=== PATIENT | female | born 1985 | race Caucasian/White ===

== ENCOUNTER 2017-07-10 14:40 | Inpatient (IN) | payer OTHER ==
[2017-07-11] MEDS ORDERED: LR / Pitocin 40 units/1000 ml 1,000 ML IV PRN (18:17)
[2017-07-11] MEDS ORDERED: Ondansetron HCl/PF 4 MG/2 ML Vial IVP PRN (18:17)
[2017-07-11] MEDS ORDERED: Zolpidem Tartrate 5 MG TAB PO PRN (18:17)
[2017-07-11] MEDS ORDERED: Acetaminophen 500 MG TAB PO PRN (18:17)
[2017-07-11] MEDS ORDERED: Promethazine HCl 25 MG/ML VIAL IM PRN (18:17)
--- NOTE | 2017-07-11 18:22 | PDOC.LDHP ---
Labor and Delivery H&P Chief complaint: scheduled induction Current gestational age (weeks): 40 Due date: 07/10/17 Dating criteria: first trimester ultrasound Grav: 1 Para: 0 Current complications: none Abnormal US findings: No Past Medical History: neg Current medications: pre-fanta vitamins Previous surgical history: other (wisdom teeth) Social history: none - Physical Exam Heart: RRR Lungs: CTAB Abdomen: gravid Extremeties: no edema FHT: category 1 - Vaginal Exam cm dilated: 1 Effacement: 25% Station: -1 - OB Labs Blood type: AB RH: positive Antibody Screen: negative HIV: negative RPR: negative HEPSAg: negative 1 hour GCT: positive 3 hour GTT: negative GBS: negative Urine drug screen: not done Rubella: immune - Assessment L&D Assessment: elective induction at term - Plan Plan: admit to L&D, cervical ripening, labor augmentation if indicated, anesthesia consult for pain management
[2017-07-11] MEDS ORDERED: HYDROcodone/Acetaminophen 5/325 mg Tablet PO PRN (21:30)
[2017-07-11] MEDS ORDERED: LR 500 ML/Oxytocin 10 units 500 ML IV SCH (21:30)
[2017-07-11] MEDS ORDERED: Lidocaine 1% (PF) 30 ML VIAL SC PRN (21:30)
[2017-07-11] MEDS ORDERED: Ibuprofen 800 MG TAB PO PRN (21:30)
[2017-07-11 21:35] VITALS: BMI 32.9
[2017-07-11] MEDS: Lactated Ringer's 1,000 ML IV SCH (21:50)
[2017-07-11] MEDS: Misoprostol 100 MCG TAB VAG SCH (22:11)
[2017-07-11 22:41] LABS: Hemoglobin 11.2 g/dL (12.0-16.0); Mean Corpuscular HGB CONC 34.6 g/dL (32.0-36.0); Mean Corpuscular Hemoglobin 33.6 pg (27.0-31.0); Mean Corpuscular Volume 96.9 fl (81.0-99.0); Mean Platelet Volume 7.5 fL (7.4-10.4); Platelet Count 272 thou/uL (130-400); RBC Distribution Width 11.7 % (11.5-14.5); Red Blood Cell (RBC) Count 3.35 mill/uL (4.20-5.40); White Blood Cell (WBC) Count 11.9 thou/uL (4.8-10.8)
[2017-07-11 23:26] LABS: HBSAg Index 0.19 S/CO (0-0.99); Hep B Surf Ag Non-Reactive S/CO (NonReactive)
[2017-07-11 23:46] LABS: Syphilis Antibody Nonreactive (Nonreactive); Syphilis Antibody Index 0.05 S/CO (<1.00 Non-Reactive)
[2017-07-12] MEDS: Misoprostol 100 MCG TAB VAG SCH ×3 (03:40→12:29)
[2017-07-12] MEDS: Lactated Ringer's 1,000 ML IV SCH ×3 (03:40→17:42)
[2017-07-12] MEDS ORDERED: DISCONTINUE ALL PREVIOUS NARCOTICS FS SCH (03:45)
[2017-07-12] MEDS: Bupivacaine 0.5% 20 ML, Fentanyl 400 MCG in Sodium Chloride 0.9% 72 ML EPIDURAL SCH ×3 (03:58→16:25)
[2017-07-12] MEDS ORDERED: diphenhydrAMINE 50 MG/ML VIAL IVP PRN ×2 (04:34→20:38)
[2017-07-12] MEDS ORDERED: Lactated Ringer's 500 ML IV PRN (04:34)
[2017-07-12] MEDS ORDERED: Naloxone HCl 0.4 mg/ml Vial IVP PRN ×4 (04:34→20:38)
[2017-07-12] MEDS ORDERED: Promethazine HCl 25 MG/ML VIAL IM PRN ×2 (04:34→20:38)
[2017-07-12] MEDS ORDERED: Ondansetron HCl/PF 4 MG/2 ML Vial IVP PRN ×3 (04:34→20:38)
[2017-07-12] MEDS ORDERED: Eucerin (Mineral Oil/Petrolatum,White) 30 gm Jar TOP PRN (04:34)
[2017-07-12] MEDS ORDERED: Acetaminophen 325 MG TAB PO PRN (04:34)
[2017-07-12] MEDS ORDERED: ePHEDrine/0.9% NaCl/PF SYRINGE 50 mg/10 ml SLOW IVP PRN (04:34)
[2017-07-12] MEDS ORDERED: Communication Order-Pharmacy FS SCH ×2 (04:45→20:45)
[2017-07-12] MEDS ORDERED: Fentanyl 4mcg/Marcaine 0.1% Cassette 100 ML EPIDURAL SCH (04:45)
[2017-07-12] MEDS ORDERED: Dexamethasone 20 MG/5 ML VIAL ONE (13:53)
[2017-07-12] MEDS ORDERED: Ketorolac Tromethamine 30 MG/ML VIAL ONE ×3 (13:53→21:33)
[2017-07-12] MEDS ORDERED: Lidocaine 2% MPF 10 ML AMP (For Epidural Use) ONE (13:53)
[2017-07-12] MEDS ORDERED: Ondansetron HCl/PF 4 MG/2 ML Vial ONE ×2 (13:53→20:20)
[2017-07-12] MEDS ORDERED: CEFAZOLIN/Water 2 GM/20 ML SYRINGE ONE (19:38)
[2017-07-12] MEDS ORDERED: Bicitra 30 ML UDCUP ONE (19:38)
[2017-07-12] MEDS ORDERED: Bicitra 30 ML UDCUP PO SCH (20:00)
[2017-07-12] MEDS ORDERED: CEFAZOLIN/Water 2 GM/20 ML SYRINGE SLOW IVP SCH (20:00)
--- NOTE | 2017-07-12 20:14 | PDOC.EVN ---
Event Note - Event Note Event Note: Patient has progressed in labor and was noted to be 8 cm/90%/-1 station at 1530. On repeat cervical check at 1730, no change was noted. An IUPC was placed and MVU's were noted to be over 200. FHRT remains reassuring throughout and patient is afebrile. Recheck shows edematous cervix 7 cm with no further descent -1 station. A/P: Failure to progress /descend in active phase Primary ceasarean section.
[2017-07-12] MEDS ORDERED: diphenhydrAMINE 25 MG CAP PO PRN (20:19)
[2017-07-12] MEDS ORDERED: Bisacodyl 10 MG SUPP PR PRN (20:19)
[2017-07-12] MEDS ORDERED: Morphine PF 1 MG/ML SYR ONE (20:19)
[2017-07-12] MEDS ORDERED: Lanolin Ointment 7 GM TUBE TOP PRN (20:19)
[2017-07-12] MEDS ORDERED: Adacel (T-DAP) 0.5 ML VIAL IM ONE (20:19)
[2017-07-12] MEDS ORDERED: Simethicone Chewable 80 MG TAB PO PRN (20:19)
[2017-07-12] MEDS ORDERED: Dexamethasone 4 mg/ml Vial ONE (20:20)
[2017-07-12] MEDS ORDERED: Oxytocin 10 UNITS/ML VIAL ONE ×2 (20:20→21:06)
[2017-07-12] MEDS ORDERED: LR w/ Pitocin 40 units/1000 ML BAG IV SCH (20:30)
[2017-07-12] MEDS ORDERED: HYDROmorphone 2 MG/ML VIAL SLOW IVP PRN (20:37)
[2017-07-12] MEDS ORDERED: Meperidine HCl/PF 25 MG/ML VIAL SLOW IVP PRN (20:37)
[2017-07-12] MEDS ORDERED: Hydrocerin (Eucerin) Cream 120 gm Jar TOP PRN (20:38)
[2017-07-12] MEDS ORDERED: Promethazine HCl 25 MG SUPP PR PRN (20:38)
[2017-07-12] MEDS ORDERED: Naloxone HCl 0.4 mg/ml Vial IV PRN (20:38)
[2017-07-12] MEDS ORDERED: Ketorolac Tromethamine 30 MG/ML VIAL IVP SCH (20:45)
[2017-07-12] MEDS: Ketorolac Tromethamine 30 MG/ML VIAL IVP PRN (21:35)
[2017-07-12] MEDS ORDERED: Ibuprofen 800 MG TAB PO SCH (22:00)
[2017-07-13 05:40] LABS: Hemoglobin 9.5 g/dL (12.0-16.0); Mean Corpuscular HGB CONC 34.4 g/dL (32.0-36.0); Mean Corpuscular Hemoglobin 32.9 pg (27.0-31.0); Mean Corpuscular Volume 95.7 fl (81.0-99.0); Mean Platelet Volume 7.1 fL (7.4-10.4); Platelet Count 188 thou/uL (130-400); RBC Distribution Width 11.6 % (11.5-14.5); Red Blood Cell (RBC) Count 2.88 mill/uL (4.20-5.40)
--- NOTE | 2017-07-13 07:48 | PDOC.OPDEL ---
OB Operative/Delivery Note Delivery Dr/Surgeon: Poornima Assist: Maximilian Pre-Delivery Diagnosis: arrest of dilation, elective induction Procedure/Post Delivery Dx: primary low transverse CS Weeks gestation: 40 Anesthesia: epidural - Findings A Sex: male Weight: 8 lb 8 oz - 1 min: 9 - 5 min: 9 - Additional Findings/Plan Placenta delivered: manual removal findings: low transverse hysterotomy without extension Estimated blood loss: 750ml Compilations/Other Findings: none Post delivery plan: routine recovery
--- NOTE | 2017-07-13 07:53 | PDOC.PP ---
Post Progress Note Post Day #: 1 PO intake tolerated: yes Flatus: yes Ambulation: yes Vital Signs (12 hours) Temp Pulse Resp BP BP 07/13/17 06:00 18 07/13/17 04:00 98.1 F 71 16 133/72 07/13/17 02:00 18 07/13/17 00:35 98.2 F 63 18 136/68 07/13/17 00:30 98.2 F 63 18 07/12/17 23:35 97.8 F 63 20 136/68 Weight Weight 204 lb - Physical Examination General: NAD Cardiovascular: no m/r/g, RRR Respiratory: clear to auscultation bilaterally, non-labored breathing Abdominal: + bowel sounds, lochia, no distention, appropriately TTP Result Diagrams: 07/13/17 05:23 Additional Labs: Post Labs Blood Type AB POSITIVE 07/11/17 21:56 Hep Bs Antigen Non-Reactive S/CO (NonReactive) 07/11/17 21:57 - Assessment/Plan post op day 0-1 from primary c/s for failure to progress/descend in active labor. Vitals are stable. Expected blood loss anemia is asymptomatic. Routine post op care.
--- NOTE | 2017-07-13 08:03 | OP ---
DATE OF PROCEDURE: 07/12/2017 PREOPERATIVE DIAGNOSIS: A 31-year-old white female , status post elective induction of labor wi th failure to progress and descend past 8 cm, -1 station. POSTOPERATIVE DIAGNOSES: 1. A 31-year-old white female , status post elective induction of labor with failure to progres s and descend past 8 cm, -1 station. 2. Nuchal cord x3 noted and ROP presentation. PROCEDURE PERFORMED: Primary low transverse section. ANESTHESIA: Epidural. SURGEON: Kerry Noguera M.D. MINERAL TECHNOLOGIST: Christine Yao M.D. ESTIMATED BLOOD LOSS: 750 mL. ANTIBIOTICS: Two grams Ancef travel money advisor to the OR. FINDINGS: 1. Vigorous male infant, Apgars 9 and 9 with weight 8 pounds and 8 ounces. Clear amniotic flu id noted. 2. ROP presentation noted along with loose triple nuchal cord. 3. Normal appearing uterus, fallopian tubes and ovaries. 4. Clear urine present in Swain catheter post procedure. DISPOSITION: To recovery room stable. DESCRIPTION OF OPERATIVE PROCEDURE: The patient had failed to progress over 4 hours past 8 cm with n o further descent in station and with adequate contraction patterns consistent with failure to progre ss and descend and was therefore taken back for primary section after informed consent had b een. She was placed in supine position, prepped and draped in usual fashion and epidural anesthesia was dosed at an adequate level for operative procedure. A Pfannenstiel incision was then made in the lower abdomen and was carried down the fascia. Fascia was nicked in midline. Fascial incision was extended bilaterally using curved Tompkins scissors. The rectus fascia was then dissected superiorly and inferiorly off the rectus muscle bellies and rectus muscle bellies divided in the midline. The abraham toneal cavity was entered. John O retractor was then placed and a 2 cm hysterotomy incision was ma de above the vesicouterine peritoneal reflection and this was extended via finger fractionation. The baby was delivered in vertex presentation. Mouth and nares of the infant, bulb suctioned on the abd omen. The cord was doubly clamped and cut and handed to the pediatric staff in attendance. Usual co rd blood was also obtained. Placenta was manually extracted. Uterus was externalized and curetted o f any remaining placental fragments with dry laparotomy sponge. Uterus was then replaced back in the abdomen. The hysterotomy incision was closed with #1 Vicryl suture in running locking fashion doubl e layered closure. Hemostasis was confirmed. The pelvis was irrigated. Again, hemostasis confirmed . John O retractor was then removed. The pelvis was again inspected. Again, hysterotomy incision was noted to be hemostatic. The rectus muscle bellies were then inspected and noted to be hemostati c prior to fascial closure. The fascia was closed with 0 PDS suture x2 in running continuous fashion . The subcutaneous tissues were irrigated and noted to be hemostatic prior to skin approximation wit h opal. Surgery was terminated. There were no surgical or anesthetic complications.
[2017-07-13] MEDS: Docusate Calcium (SURFAK) 240 MG CAP PO SCH ×3 (08:26→21:23)
[2017-07-13] MEDS: Misoprostol 100 MCG TAB VAG SCH (08:26)
[2017-07-13] MEDS: Ferrous Sulfate 325 MG TAB PO SCH ×3 (08:26→21:33)
[2017-07-13] MEDS: Prenatal Vitamin 1 TAB PO SCH (09:05)
[2017-07-13] MEDS: Ketorolac Tromethamine 30 MG/ML VIAL IVP PRN (09:08)
[2017-07-13] MEDS: Ibuprofen 800 MG TAB PO SCH ×2 (15:08→21:23)
[2017-07-13] MEDS ORDERED: HYDROcodone/Acetaminophen 5/325 mg Tablet PO PRN (18:23)
[2017-07-14] MEDS: HYDROcodone/Acetaminophen 5/325 mg Tablet PO PRN ×2 (00:25→08:50)
[2017-07-14] MEDS: Ibuprofen 800 MG TAB PO SCH ×2 (05:29→13:47)
[2017-07-14] MEDS ORDERED: Ibuprofen 800 MG TAB PO SCH (06:00)
--- NOTE | 2017-07-14 08:07 | PDOC.PP ---
Post Progress Note Post Day #: 2 PO intake tolerated: yes Flatus: yes Ambulation: yes Vital Signs (12 hours) Temp Pulse Resp BP 07/14/17 00:00 98.1 F 83 20 132/62 Weight Weight 204 lb - Physical Examination General: NAD Cardiovascular: no m/r/g, RRR Respiratory: clear to auscultation bilaterally, non-labored breathing Abdominal: + bowel sounds, lochia, no distention, appropriately TTP Result Diagrams: 07/13/17 05:23 Additional Labs: Post Labs Blood Type AB POSITIVE 07/11/17 21:56 Hep Bs Antigen Non-Reactive S/CO (NonReactive) 07/11/17 21:57 - Assessment/Plan post op day 2 from primary c/s for failurew to progress/descend in labor. Doing well. Possible d/d today . Otherwise, discharge in Am with f/u post op day 7 for staple removal and 6 weeks post check.
[2017-07-14] MEDS: Prenatal Vitamin 1 TAB PO SCH (08:49)
[2017-07-14] MEDS: Docusate Calcium (SURFAK) 240 MG CAP PO SCH (08:50)
[2017-07-14] MEDS: Ferrous Sulfate 325 MG TAB PO SCH (08:50)
[2017-07-14 11:59] VITALS: BP 140/72; TEMP 98.2
[2017-07-14] MEDS ORDERED: Measles/Mumps/Rubella 10 MCG/0.5 ML VIAL SC ONE (16:30)
[2017-07-14] MEDS ORDERED: Measles/Mumps/Rubella 10 MCG/0.5 ML VIAL SC SCH (16:30)
== END 2017-07-14 17:00 | disposition home or self-care (01) | DRG 766 ==
LOC: L&D 07-11 20:20 → EEVIPCON 07-11 20:20 → 3SW 07-12 23:57
PROVIDERS: ADMIT Obstetrics & Gynecology; ATTEND Obstetrics & Gynecology
PROC: 10D00Z1 Extraction of Products of Conception, Low, Open Approach (ICD-10-PCS; principal; 2017-07-12)
DX: O69.81X0 Labor and delivery complicated by cord around neck, without compression, not applicable or unspecified (principal); O32.4XX0 Maternal care for high head at term, not applicable or unspecified; O62.1 Secondary uterine inertia; Z37.0 Single live birth; Z3A.40 40 weeks gestation of pregnancy
CPT/HCPCS: 36415; 51702; 85027; 86780; 86850; 86900; 86901; 87340; 90715; J1100; J1885; J2001; J2274; J2405; J2590; J3010; J3490; J7050; J7120